=== PATIENT | female | born 1985 | race Caucasian/White ===

== ENCOUNTER 2021-12-27 21:05 | Emergency (ER) | payer BC, SELFPAY ==
--- NOTE | 2021-12-27 21:53 | ED_ITS ---
HPI - Chest Pain General Chief Complaint: Chest Pain Stated Complaint: Chest pain Time Seen by Provider: 12/27/21 21:53 Source: patient and RN notes reviewed History of Present Illness HPI narrative: 36-year-old woman presenting to the emergency department with complaint of left upper chest pains that she has trouble describing. My paraphrasing might describe it as a pulse, pinch sometimes of fluttering. She will have a shoot down her left arm sometimes as well. No exacerbating or relieving factors. Is not brought on with position changes. not exercise regularly. Is generally out of breath upstairs. Does not describe swelling in her extremities. Been no injury. She will at times feel the need to take a deep breath as well. She has discussed this with her primary care providers about 2 months ago. It has been increasing in frequency since. Was happening all day today at work. In the meantime they have planned an stress echocardiogram. I believe that is due in early January? There was some lab work done, unclear what was done. She is concerned partly because her father at 59 and had a right coronary full occlusion. This is relatively recent. Review of Systems Status of ROS Reports: 10 or more systems reviewed and unremarkable except as noted in History and below [facility], [facility] Social History Smoking Status: Never smoker Do you use any of these nicotine containing products: None Second hand tobacco smoke exposure: No How often do you have a drink containing alcohol: monthly or less How many standard drinks containing alcohol do you have on a typical day: 1 or 2 How often do you have six or more drinks on one occasion: Never AUDIT-C Alcohol total score: 1 Non-prescribed substance use: denies use Exam Narrative Exam Narrative: General: pleasant, nad, breathing easily. CN 2 - 12 intact. Mentating normally. Speaking easily. Skin: warm and dry and well-perfused peripherally without apparent rash. Normal turgor. HEENT: head looks atraumatic. Eyes are non-icteric, without sclera injection, PERRLA. Neck and Back: Neck is supple, nontender. Back also nontender. No rhomboid area pain. Cardiac: RRR no MRG Lungs/Chest: clear, with equal expansion/excursion, No pain to palpation. Musculoskeletal/Extremities: Moving all extremities without difficulty. Without pain to palpation. No extremity edema. Intact sensation. Strong peripheral pulses. Const Vital Signs, click to edit/add: Vital Signs - 24 hr 12/27/21 23:30 12/28/21 00:00 Pulse Rate [Pulse Oximeter] 77 81 Respiratory Rate 16 16 Blood Pressure [Right Upper Arm] 130/85 132/92 H Pulse Oximetry 99 99 Course Course Hospital Course: I discussed options of workup. I think any workup here today will be rather low yield beyond perhaps monitoring Proposed outside Holter monitor placement. She already has stress echo scheduled. Understandably the more intense symptoms experience today were concerning. After discussion decided to proceed with further cardiac evaluation. Monitored on night monitor and oximetry during time in the emergency department. No event captured. Otherwise well. Vital Signs Vital signs: Initial Vital Signs Respiratory Effort Spontaneous 12/27/21 21:16 Respiratory Depth Normal 12/27/21 21:16 Respiratory Pattern 12/27/21 21:16 Vital Signs Pulse Rate 77 12/27/21 23:30 Respiratory Rate 16 12/27/21 23:30 Blood Pressure 130/85 12/27/21 23:30 Pulse Oximetry 99 12/27/21 23:30 Pulse Rate 81 12/28/21 00:00 Respiratory Rate 16 12/28/21 00:00 Blood Pressure 132/92 H 12/28/21 00:00 Pulse Oximetry 99 12/28/21 00:00 MDM - Chest Pain MDM Narrative Medical decision making narrative: I discussed that I think this is unlikely to be ischemic. Story inconsistent with other differential as discussed with Ms. Mata. I think a Holter monitor may be warranted and pending on these findings and further laboratory workup. It appears that Ms. Mata would like to proceed though with further evaluation here in the emergency department. I think this will be relatively low yield but I think it is not unreasonable either. Will look for any indication of damage, TSH and chemistries that might be precipitating dysrhythmia. Chest x-ray one view reviewed by me looks unremarkable other than some mild scoliotic curvature. Normal mediastinum and cardiac silhouette EKG reviewed by me normal sinus rhythm. Rate of 79 Medical Records Data Attestation: I reviewed the patient's medical records. Lab Data Attestation: I reviewed the patient's lab results. Lab results narrative: All normal Labs: Lab Results 12/27/21 12/27/2112/27/22 Range/Units 22:25 22:25 22:25 Hgb 12.7 (12.0-16.0) gm/dL D-Dimer Quant (PE/DVT) 0.41 (0.00-0.50) ug/ml Sodium 140 (135-149) mmol/L Potassium 3.8 (3.6-5.1) mmol/L Chloride 109 (96-114) mmol/L Carbon Dioxide 24 (20-32) mmol/L BUN 11 (5-24) mg/dL Creatinine 0.6 (0.5-1.5) mg/dL Glucose 111 (60-115) mg/dL Calcium 8.7 (8.4-10.6) mg/dL Troponin I < 0.01 L (0.01-0.04) ng/mL C-Reactive Protein < 0.5 L (0.5-1.0) mg/dL TSH (0.270-4.20) uIU/mL 12/27/21 Range/Units 22:25 Hgb (12.0-16.0) gm/dL D-Dimer Quant (PE/DVT) (0.00-0.50) ug/ml Sodium (135-149) mmol/L Potassium (3.6-5.1) mmol/L Chloride (96-114) mmol/L Carbon Dioxide (20-32) mmol/L BUN (5-24) mg/dL Creatinine (0.5-1.5) mg/dL Glucose (60-115) mg/dL Calcium (8.4-10.6) mg/dL Troponin I (0.01-0.04) ng/mL C-Reactive Protein (0.5-1.0) mg/dL TSH 1.670 (0.270-4.20) uIU/mL Discharge Plan Discharge Clinical Impression: Atypical chest pain Patient Disposition: Home, Self-Care Condition: Stable Additional Instructions: Important to stay well hydrated. Return for persistent chest pain, associated with shortness of breath, nausea, lightheaded. The intermittent nature that you been describing think seems less to be ischemic heart disease. There has been no evidence of it here in any case. Wear the Holter monitor as recommended and follow-up with her primary care provider about a week after turning it in for results. Otherwise follow-up for stress echocardiogram as planned/scheduled. Follow Up/Referrals: Jacinda Nava MD [Primary Care Provider] - Stand Alone Forms: [employer] Info Instructions
--- NOTE | 2021-12-27 22:06 | CRLHL7_ITS ---
For Patients: As a result of the Century Cures Act, medical imaging exams and procedure reports are released immediately into your electronic medical record. You may view this report before your referring provider. If you have questions, please contact your health care provider. HISTORY: Dyspnea. COMPARISON: None available FINDINGS: A portable erect AP view of the chest was obtained at 22 45 hours. The lungs are clear. No focal or diffuse infiltrates are present. The heart is normal in size. The mediastinum is normal in appearance. There is minimal scoliosis of the thoracic spine convex towards the right. IMPRESSION: No active disease seen in the chest. Dictated by Anil Pérez MD @ 12/27/2021 11:12:05 PM (Electronically Signed)
[2021-12-27 22:50] LABS: Chloride* 109 mmol/L (96-114); Potassium* 3.8 mmol/L (3.6-5.1); Sodium* 140 mmol/L (135-149)
[2021-12-27 22:52] LABS: Hemoglobin* 12.7 gm/dL (12.0-16.0)
[2021-12-27 22:53] LABS: Creatinine* 0.6 mg/dL (0.5-1.5); Estimated Glomerular Filt Rate 119.97
[2021-12-27 22:54] LABS: Blood Urea Nitrogen* 11 mg/dL (5-24); Calcium* 8.7 mg/dL (8.4-10.6); Carbon Dioxide* 24 mmol/L (20-32); Glucose* 111 mg/dL (60-115)
[2021-12-27 22:59] LABS: C Reactive Protein* < 0.5 mg/dL (0.5-1.0)
[2021-12-27 23:30] VITALS: BP 130/85; PULSE 77; RESP 16; O2SAT 99
[2021-12-27 23:49] LABS: Troponin I* < 0.01 ng/mL (0.01-0.04)
[2021-12-27 23:58] LABS: D Dimer Quantitative* 0.41 ug/ml (0.00-0.50)
[2021-12-28] VITALS: BP 132/92; PULSE 81; RESP 16; O2SAT 99
== END 2021-12-28 00:15 | disposition home or self-care (01) ==
PROVIDERS: Emergency Provider Family Medicine; PCP Family Medicine
DX: R07.89 Other chest pain (principal)
CPT/HCPCS: 36415; 71045; 80048; 84443; 84484; 85018; 85379; 86140; 93005; 93225; 93226; 99283; 99285